=== PATIENT | male | born 1990 | race Caucasian/White ===

== ENCOUNTER 2023-02-08 23:21 | Emergency (ER) | payer OTHER ==
[~2023-02-08] VITALS: Ht 190.5 cm; Wt 88.5 kg
[2023-02-08 23:21] VITALS: BP 134/84; TEMP 98; O2SAT 98
[2023-02-08] MEDS ORDERED: TDAP [DIPH/PERTUSSIS/TET] 0.5 ML VIAL IM ONE (23:48)
[2023-02-09] MEDS ORDERED: TDAP [DIPH/PERTUSSIS/TET] 0.5 ML VIAL IM ONE
[2023-02-09] MEDS ORDERED: AMOX-430 PO (00:17)
[2023-02-09] MEDS ORDERED: AMOX/CLAVULANATE 875 MG TABLET ONE (00:19)
[2023-02-09] MEDS ORDERED: AMOX/CLAVULANATE 875 MG TABLET PO ONE (00:30)
== END 2023-02-09 01:31 | disposition home or self-care (01) ==
LOC: ER 23:25
DX: S01.21XA Laceration without foreign body of nose, initial encounter (principal); W54.0XXA Bitten by dog, initial encounter; Y93.89 Activity, other specified; Y92.89 Other specified places as the place of occurrence of the external cause; Y99.8 Other external cause status
CPT/HCPCS: 90715